=== PATIENT | female | born 1945 | race Caucasian/White ===

== ENCOUNTER → 2019-05-05 | Outpatient (CLI) | payer MEDICARE, OTHER ==
[~2019-05-05] MED LIST: AMLO1TAB99 PO; BUPR150T13 PO; GLUC-149 PO; HYDR-36 PO; METO50TA82 PO; MULT-658 PO; VARE0.5T PO
[2019-05-05 11:21] LABS: BASOPHILS # (AUTO) 0.03 x10^3/uL (0-0.1); BASOPHILS % (AUTO) 0 % (0-1); EOSINOPHILS # (AUTO) 0.07 x10^3/uL (0-0.4); EOSINOPHILS % (AUTO) 1 % (1-7); LYMPHOCYTES % (AUTO) 21 % (22-44); MD NO; MEAN CORPUSCULAR HEMOGLOBIN 31.3 pg (27.0-34.8); MEAN CORPUSCULAR HGB CONC 33.1 g/dL (32.4-35.8); MEAN CORPUSCULAR VOLUME 94.6 fL (80-100); MEAN PLATELET VOLUME 8.1 fL (7.4-10.4); MONOCYTES # (AUTO) 0.62 x10^3/uL (0.2-0.8); MONOCYTES % (AUTO) 8 % (2-9); NEUTROPHILS # (AUTO) 5.42 x10^3/uL (1.8-6.8); NEUTROPHILS % (AUTO) 70 % (42-75); PLATELET COUNT 214 x10^3/uL (130-400); RED BLOOD COUNT 5.94 x10^6/uL (3.82-5.3); RED CELL DISTRIBUTION WIDTH 14.6 % (9.6-15.2)
[2019-05-05 11:30] LABS: ALANINE AMINOTRANSFERASE 25 U/L (12-78); ANION GAP 4 mmol/L (5-15); CALCIUM 9.5 mg/dL (8.5-10.1); CHLORIDE 106 mmol/L (98-107); CREATININE 1.07 mg/dL (0.55-1.02); INTERNATIONAL NORMALIZED RATIO 1.01 (0.93-1.1); PROTHROMBIN TIME 10.7 Seconds (9.6-11.5)
[2019-05-05 11:33] LABS: ALKALINE PHOSPHATASE 88 U/L (45-117); BILIRUBIN,TOTAL 0.7 mg/dL (0.2-1.0); TOTAL PROTEIN 7.8 g/dL (6.4-8.2)
== END | disposition home or self-care (01) ==
LOC: STAR 10:10
PROVIDERS: ATTEND Specialist
DX: Z01.818 Encounter for other preprocedural examination (principal); C51.9 Malignant neoplasm of vulva, unspecified; N90.7 Vulvar cyst; N90.89 Other specified noninflammatory disorders of vulva and perineum
CPT/HCPCS: 36415; 71046; 80053; 85025; 85610; 85730; 93005

== ENCOUNTER 2019-05-14 08:10 | Outpatient (CLI) | payer MEDICARE | END 2019-05-14 23:59 | disposition home or self-care (01) | LOC: ROC 08:10 | PROVIDERS: ATTEND Radiology Radiation Oncology | DX: C51.0 Malignant neoplasm of labium majus (principal); I10 Essential (primary) hypertension; M19.90 Unspecified osteoarthritis, unspecified site; Z90.49 Acquired absence of other specified parts of digestive tract | CPT/HCPCS: 99214; G0463 ==

== ENCOUNTER 2019-06-12 09:30 | Outpatient (CLI) | payer MEDICARE ==
[~2019-06-12 09:30] MED LIST changes: +HYDR-3246 PO; -HYDR-36 PO
== END 2019-06-12 23:59 | disposition home or self-care (01) ==
LOC: ROC 09:30
PROVIDERS: ATTEND Radiology Radiation Oncology
DX: Z51.0 Encounter for antineoplastic radiation therapy (principal); C51.1 Malignant neoplasm of labium minus; I10 Essential (primary) hypertension; J44.9 Chronic obstructive pulmonary disease, unspecified; M19.90 Unspecified osteoarthritis, unspecified site; Z90.49 Acquired absence of other specified parts of digestive tract
CPT/HCPCS: 77386

== ENCOUNTER 2019-07-24 07:56 | Outpatient (CLI) | payer MEDICARE | END 2019-07-24 23:59 | disposition home or self-care (01) | LOC: ROC 07:56 | PROVIDERS: ATTEND Radiology Radiation Oncology | DX: Z08 Encounter for follow-up examination after completed treatment for malignant neoplasm (principal); C51.1 Malignant neoplasm of labium minus; C51.9 Malignant neoplasm of vulva, unspecified; I10 Essential (primary) hypertension; M19.90 Unspecified osteoarthritis, unspecified site; J44.9 Chronic obstructive pulmonary disease, unspecified; Z90.49 Acquired absence of other specified parts of digestive tract | CPT/HCPCS: 99212; G0463 ==

== ENCOUNTER 2019-09-11 08:03 | Outpatient (CLI) | payer MEDICARE | END 2019-09-11 23:59 | disposition home or self-care (01) | LOC: ROC 08:03 | PROVIDERS: ATTEND Radiology Radiation Oncology | DX: C51.1 Malignant neoplasm of labium minus (principal); Z79.899 Other long term (current) drug therapy | CPT/HCPCS: 99212; G0463 ==